=== PATIENT | male | born 1945 | race Two or more races ===

== ENCOUNTER 2019-05-17 09:47 | Day surgery (SDC) | payer OTHER ==
[~2019-05-17 09:47] MED LIST: OMEGA-31000 MG PO; SYNTHROID50 MCG PO
== END 2019-05-17 20:10 | disposition home or self-care (01) ==
LOC: CIR.AMB 09:47
DX: K64.8 Other hemorrhoids (principal); K64.4 Residual hemorrhoidal skin tags